=== PATIENT | male | born 1970 | race Caucasian/White ===

== ENCOUNTER 2018-03-12 05:20 | Inpatient (IN) ==
[2018-03-12] MEDS ORDERED: Naloxone 0.4 MG/ML INJ IVP PRN (08:49)
--- NOTE | 2018-03-12 09:08 | Internal Med History&Physical ---
Date of Encounter: 03/12/18 Time of Encounter: 09:36 Internal Medicine - H&P: HPI Chief complaint: Seizures Admitted From: Home Plans for Post Hospital Care: Home History of present illness: Mr. Le is a 47 year old male with of polysubstance abuse, seizure disorder, cirrhosis, HTN Seen and evaluated with girlfriend at the bedside, she has only known him for 5 months and knows he has a hx of seizures He does not take any medications at home according to her Chart review showed hx of subsatnce/alcohol abuse, cirrhosis and HTN. He was in his usual state of health till 3 days ago when he had an episode of tonic seizures. They did not present to the hospital at that time. However, early this mrn around 4a.m, she noticed him clutching his chest and he subsequently had straightening of his RLE, she did not describe a tonic-clonic movement, she believes he was unresponsive and had his RLE straightened out, with foaming in the mouth. She called the squad who transported him to the referring hospital. He had also complained of abdominal pain prior to onset of seizures She denies tongue biting, no bowel or urinary incontinence. No preceding history of trauma The patient's girlfriend denies illicit drug use by him, she reports the last shared a beer yesterday. ON arrival at the referring emergency room, he was given 1 dose of Ativan and his seizures acidosis. Patient remains unresponsive during my evaluation. Workup from the SNF facility shows chem: Within normal limit, transaminitis with AST of 2675, AST of 134, normal bilirubin, coagulation panel within normal limit, CBC within normal limit, urine toxicology was not obtained. Head CT showed no acute abnormality. Patient will be admitted inpatient for encephalopathy, likely due to postictal state from seizures. Past Med Surg Social Fam HX - Past Medical History Medical history: hypertension, seizures, other Additional medical history: arthritis is neck and back Psychiatric history: anxiety, depression - Past Surgical History Surgical History: other Additional surgical history: ear surgery, drain blood from brain in 2001 x2 - Social History Smoking Status: Current every day smoker Smokeless Tobacco Status: No Alcohol use: occasionally Drug use: opiates, IV Drug Use, prescription drug abuse - Family History Mother Living Status: Hx Family Cardiac Disorders: No Hx Family Respiratory Disorders: No Hx Family Cancer: Yes Father Living Status: Hx Family Cardiac Disorders: No Hx Family Respiratory Disorders: No Hx Family Cancer: Yes Internal Medicine - H&P: Meds Divalproex (12 HR) [Depakote (12 HR)] 500 mg PO TID 04/24/17 [History] ALPRAZolam [Xanax 0.5 MG Tablet] 0.5 mg PO BID 07/17/17 [History] Amitriptyline [Elavil] 50 mg PO HS 07/17/17 [History] Buprenorphine HCl/Naloxone HCl [Suboxone 8 mg-2 mg Sl Film] 1 each SL AD 07/17/17 [History] Buspirone HCl [Buspar] 10 mg PO TID 07/17/17 [History] risperiDONE [Risperidone] 1 mg PO HS 07/17/17 [History] Allergy/AdvReac Type Severity Reaction Status Date / Time hydrocodone Allergy Hives Verified 05/22/17 14:15 Penicillins Allergy Hives Verified 05/22/17 14:15 ROS unobtainable: due to mental status All Systems PM: A 10-system review of systems was performed and is negative for pertinent findings except as documented above in the HPI. - Constitutional Vitals: Temp Pulse Resp BP Pulse Ox 98.0 F 98 17 124/79 96 03/12/18 07:30 03/12/18 07:30 03/12/18 07:30 03/12/18 07:30 03/12/18 07:30 Exam: VSS, Stable Gen: Calm, withdraws to noxious stimuli, does not open eyes to name call HEENT: Moist oral mucosa, sclera anicteric, not pale Chest: Equal chest movement bilaterally REsp: CTAB Heart: S1, S2, only, no m/g/r Abdomen: Obese, soft, not tender, BS present in al quadrants Extremities: Joint inspection is WNL, no pedal edema, pulses present bilaterally Neuro: Moves all extremities to noxious stimuli. Unresponsive to name call, pupils are dilated but reactive, sensation is intact Psych: Affect is appropriate Internal Med - H&P Results - Labs CBC & Chem 7: 03/12/18 09:08 - Assessment and plan (1) Altered mental status Current Visit: Yes Status: Acute Assessment and plan: Likely due to postictal state from seizures CT from referral facility is unremarkable Complete blood count, liver function tests, chemistry is unremarkable Ammonia is mildly elevated at 56 Aspiration and fall precautions Keep patient nothing by mouth until fully awake Qualifiers: Altered mental status type: unspecified Qualified Code(s): R41.82 - Altered mental status, unspecified (2) Alcohol use Current Visit: Yes Status: Chronic Assessment and plan: History of same Monitor for withdrawal (3) DVT prophylaxis Current Visit: Yes Status: Acute Assessment and plan: Subcutaneous heparin for DVT prophylaxis (4) Seizure Current Visit: Yes Status: Chronic Assessment and plan: Known hx of seizures with current breakthrough Currently in a post-ictal state Obtain urine tox-received one dose of atiavn from outside hospital Seizure and aspiration precautions Brain MRI scheduled Neuro eval-will await recommendations for antiseizure antiepileptic medications (5) Substance abuse Current Visit: Yes Status: Chronic Assessment and plan: Hx of same, spouse denies, continue to monitor, follow utox, monitor for withdrawal (6) Cirrhosis Current Visit: Yes Status: Chronic Assessment and plan: hx of same per family Ammonia [address] scan orderd, abnormal LFTs, with hx of abdominal pain prior to seizures CBC is WNL Continue to monitor Qualifiers: Hepatic cirrhosis type: alcoholic cirrhosis Ascites presence: without ascites Qualified Code(s): K70.30 - Alcoholic cirrhosis of liver without ascites - Time Spent With Patient Total time spent is greater than 50% in coordination of care (as documented) at patient's floor/unit and/or counseling patient:
[2018-03-12 09:29] LABS: Basophils % 0.5 %; Eosinophils # 0.3 K/mcL (0.0-0.6); Eosinophils % 3.9 %; Hematocrit 37.4 % (37.5-50.1); Hemoglobin 12.9 g/dL (12.9-16.9); Immature Granulocytes % 0.2 % (0-4); Lymphocytes # 2.6 K/mcL (0.6-4.6); Mean Corpuscular HGB Conc 34.5 g/dL (31.6-35.5); Mean Corpuscular Hemoglobin 29.3 pg (28.0-33.3); Mean Platelet Volume 10.5 fL (9.4-12.4); Monocytes # 1.3 K/mcL (0.0-1.3); Monocytes % 14.9 %; Neutrophils # 4.4 K/mcL (1.6-8.9); Platelet Count 155 K/mcL (140-400); Red Cell Distribution Width 12.9 % (11.5-14.5); Segmented Neutrophils % 50.5 %
[2018-03-12 09:36] LABS: Prothrombin Time 11.1 Seconds (9.4-12.1)
[2018-03-12 09:39] LABS: Activated Partial Thrombo Time 33.1 Seconds (26.0-36.0)
[2018-03-12 09:48] LABS: Alanine Aminotransferase 200 Units/L (7-52); Albumin 3.8 g/dL (3.5-5.7); Albumin/Globulin Ratio 1.1 (1.1-2.2); Alkaline Phosphatase 76 Units/L (34-104); Aspartate Amino Transferase 106 Units/L (13-39); BUN/Creatinine Ratio 22 (6-26); Bilirubin,Total 0.8 mg/dL (0.3-1.0); Blood Urea Nitrogen 18 mg/dL (6-20); Carbon Dioxide 26 mEq/L (23-29); Chloride 104 mEq/L (98-107); Chol/HDL Ratio 3.8 (0-4.9); Cholesterol 140 mg/dL (< 200); Globulin 3.5 g/dL (2.4-3.5); Glucose 88 mg/dL (70-105); HDL Cholesterol 37 mg/dL (40-59); LDL Cholesterol,Calculated 87 mg/dL (0-99); Osmolality,Calculated 285 (280-300); Phosphorous 4.9 mg/dL (2.7-4.5); Potassium 3.5 mEq/L (3.5-5.1); Sodium 137 mEq/L (136-145); Total Protein 7.3 g/dL (6.4-8.9); Triglycerides 78 mg/dL (< 150); eGFR For Non-African Americans > 60 (> 60)
[2018-03-12] MEDS ORDERED: *HR* LORazepam 2 MG/ML VIAL IVP PRN (09:50)
[2018-03-12 12:19] VITALS: BP 127/93
--- NOTE | 2018-03-12 13:51 | Event Note ---
Date of Encounter: 03/12/18 Time of Encounter: 13:49 Attention drawn to patient threatening to leave AMA. Patient is pacing in his room, shirtless and awake, alert, oriented X3, son is at the bedside agreeing that "they need to go" Patient can make his decisions and understands the risks.
[2018-03-12] MEDS ORDERED: *HR* Heparin 5,000 UNIT/ML VIAL SQ SCH (16:00)
== END 2018-03-12 14:05 | disposition left against medical advice (07) | DRG 101 ==
LOC: 3BNU
PROVIDERS: ADMIT Pediatrics; ATTEND Pediatrics

== ENCOUNTER 2018-12-30 10:03 | Observation (INO) ==
--- NOTE | 2018-12-30 10:10 | Emergency Department Note ---
Disposition Clinical Impression: Altered mental status Qualifiers: Altered mental status type: unspecified Qualified Code(s): R41.82 - Altered mental status, unspecified Disposition: Admitted As Inpatient Referrals: NONE,PCP [Primary Care Provider] - Time of Disposition: 13:15 General Adult HPI - General Stated complaint: sugar Time Seen by Provider: 12/30/18 10:09 Nursing Notes Reviewed: Yes Vital Signs Reviewed: Yes - History of Present Illness HPI Narrative: 40-year-old male presents emergency department after being found down in her bathroom. Patient states that he does not know what happened. Patient states that he has not use any drugs. He reports having history of seizures and type 1 diabetes mellitus and has not been taking his medications for last several months. Glucose was in the 50s per EMS initially. He was very groggy at first according to them. He was given a work oral glucose and became more responsive per their report. Patient reports having traumatic brain injury in the past. - Related Data Home Medications Medication Instructions Recorded Confirmed Divalproex (12 HR) [Depakote (12 500 mg PO TID 04/24/17 07/15/17 HR)] ALPRAZolam [Xanax 0.5 MG Tablet] 0.5 mg PO BID 07/17/17 07/17/17 Amitriptyline [Elavil] 50 mg PO HS 07/17/17 07/17/17 Buprenorphine HCl/Naloxone HCl 1 each SL AD 07/17/17 07/17/17 [Suboxone 8 mg-2 mg Sl Film] Buspirone HCl [Buspar] 10 mg PO TID 07/17/17 07/17/17 risperiDONE [Risperidone] 1 mg PO HS 07/17/17 07/17/17 Previous Rx's Medication Instructions Recorded Sulfamethoxazole/Trimeth DS 1 each PO BID #20 tablet 09/12/18 [Bactrim DS] cephALEXin [Keflex] 500 mg PO QID #28 capsule 09/12/18 Allergies Allergy/AdvReac Type Severity Reaction Status Date / Time hydrocodone Allergy Hives Verified 05/22/17 14:15 Penicillins Allergy Hives Verified 05/22/17 14:15 All systems ED: reviewed and negative except as stated. Review of Systems: As Per HPI Constitutional: Denies: fever Cardiovascular: Denies: chest pain Respiratory: Denies: cough, dyspnea Gastrointestinal: Denies: abdominal pain, nausea, vomiting Genitourinary: Denies: dysuria Neurological: Denies: headache Past Medical History - Past Medical History Attestation: Yes The following information was validated with the patient. Medical history: Reports: hypertension, seizures, other Surgical history: Reports: other Psychiatric history: Reports: anxiety, depression - Social History Smoking Status: Current every day smoker Smokeless Tobacco Status: No Alcohol use: Reports: occasionally Drug use: Reports: opiates, IV Drug Use, prescription drug abuse Physical Exam - General Limitations: no limitations General appearance: alert, in no apparent distress - Head Head exam: normocephalic - Eye Eye exam: Present: EOMI - ENT ENT exam: mucous membranes moist - Neck Neck exam: Present: trachea midline - Chest Chest inspection: Present: symmetric chest wall rise - Respiratory Respiratory exam: Present: normal lung sounds bilaterally. Absent: respiratory distress, accessory muscle use - Cardiovascular Cardiovascular exam: Present: normal rhythm, tachycardia - Abdominal Exam Abdominal exam: Present: soft, Non-Tender. Absent: tenderness, distention, guarding, rebound, rigidity, diminished bowel sounds - Extremities Exam Extremities exam: Present: normal capillary refill - Back Exam Back exam: Present: full ROM - Neurological Exam Neurological exam: Present: alert, oriented X3, CN II-XII intact - Psychiatric Psychiatric exam: Present: normal affect, normal mood - Skin Skin exam: Present: warm, dry, intact, normal color. Absent: rash Course Vital Signs Temperature 99.6 F 12/30/18 10:18 Pulse Rate 108 12/30/18 10:18 Respiratory Rate 14 12/30/18 10:18 Blood Pressure 136/86 12/30/18 10:18 O2 Sat by Pulse Oximetry 94 12/30/18 10:18 Temperature 99.6 F 12/30/18 10:18 Pulse Rate 85 12/30/18 13:00 Respiratory Rate 12 12/30/18 13:00 Blood Pressure 111/67 12/30/18 13:00 O2 Sat by Pulse Oximetry 96 12/30/18 13:00 Oxygen Delivery Oxygen Delivery Nasal Cannula Medical Decision Making - [facility] Narrative Medical decision making narrative: 48-year-old male presents to the emergency department concern for being found unresponsive in the bathroom and was mildly hypoglycemic at that time. Patient's initial glucose here was 75. We did administer D50. We gave a liter of fluids. Cranial kinase mildly elevated. CT scans of head and neck were obtained. CT scans were negative. Patient does have urine positive for opiates, morphine, amphetamines. Patient was given Narcan here in the emergency department as his consciousness became a little more somnolent. Patient still rousable and protecting his airway at all times. Narcan did not help. Due to concern that patient is not at his baseline mental status with possible medical conditions that he is not currently treating such as known seizure disorder, we have admitted him. Patient somnolent, but responsive, protecting his airway, hemodynamically stable at time of admission. Chest X-Ray 12/30/18 10:10 IMPRESSION: No acute cardiopulmonary disease. D/ / Brody Joseph MD / Brody Joseph MD Interpreting Provider: Brody Joseph MD Head CT 12/30/18 10:11 IMPRESSION: 1. No acute intracranial abnormality. D/ / Angel Valdez MD / Angel Valdez MD Interpreting Provider: Angel Valdez MD Cervical Spine CT 12/30/18 10:19 IMPRESSION: No acute abnormality of the cervical spine. D/ / Angel Lott MD / Angel Lott MD Interpreting Provider: Angel Lott MD - Lab Data Result diagrams: 12/30/18 10:58 12/30/18 10:58 Lab Results 12/30/18 12/30/18 12/30/18 Range/Units 10:58 10:58 10:58 WBC 14.7 H (4.3-11.1) K/mcL RBC 4.49 (4.19-5.50) M/mcL Hgb 13.1 (12.9-16.9) g/dL Hct 39.0 (37.5-50.1) % MCV 86.9 (83.0-100.0) fL MCH 29.2 (28.0-33.3) pg MCHC 33.6 (31.6-35.5) g/dL RDW 13.1 (11.5-14.5) % Plt Count 208 (140-400) K/mcL MPV 11.2 (9.4-12.4) fL Immature Gran % 0.3 (0-4) % Seg Neutrophils % 91.5 % Lymphocytes % 5.9 % Monocytes % 1.5 % Eosinophils % 0.5 % Basophils % 0.3 % Neutrophils # 13.4 H (1.6-8.9) K/mcL Lymphocytes # 0.9 (0.6-4.6) K/mcL Monocytes # 0.2 (0.0-1.3) K/mcL Eosinophils # 0.1 (0.0-0.6) K/mcL Basophils # 0.1 (0.0-0.2) K/mcL Sodium 137 (136-145) mEq/L Potassium 3.8 (3.5-5.1) mEq/L Chloride 106 (98-107) mEq/L Carbon Dioxide 25 (23-29) mEq/L BUN 15 (6-20) mg/dL Creatinine 0.77 (0.70-1.30) mg/dL Est GFR ( Amer) > 60 (> 60) Est GFR (Non-Af Amer) > 60 (> 60) BUN/Creatinine Ratio 19 (6-26) Glucose 79 (70-105) mg/dL Calculated Osmolality 284 (280-300) Calcium 9.4 (8.6-10.3) mg/dL Total Bilirubin 0.9 (0.3-1.0) mg/dL Direct Bilirubin 0.2 (0.0-0.2) mg/dL Indirect Bilirubin 0.7 (0.0-1.2) mg/dL AST 43 H (13-39) Units/L ALT 28 (7-52) Units/L Alkaline Phosphatase 84 (34-104) Units/L Ammonia 38 (16-53) mcmol/L Creatine Kinase 731 H (30-223) Units/L Troponin I < 0.03 (< 0.04) ng/mL Serum Total Protein 7.0 (6.4-8.9) g/dL Albumin 4.1 (3.5-5.7) g/dL Globulin 2.9 (2.4-3.5) g/dL Albumin/Globulin Ratio 1.4 (1.1-2.2) TSH 1.035 (0.340-5.600) mcIU/mL Urine Color (Yellow) Urine Clarity (Clear) Urine pH (5.0-8.0) pH Units Ur Specific [place] (1.010-1.025) Urine Protein (Neg-Trace) mg/dL Urine Glucose (UA) (Normal) mg/dL Urine Ketones (Negative) mg/dL Urine Blood (Negative) Urine Nitrite (Negative) Urine Bilirubin (Negative) Urine Urobilinogen (Normal) mg/dL Ur Leukocyte Esterase (Negative) Ur Culture Indicated? (NO) Urine Opiates Screen (Trqcpr=322) ng/mL Ur Buprenorphine Scrn (Cutoff=5) ng/mL Ur Barbiturates Screen (Qmxtvj=383) ng/mL Ur Phencyclidine Scrn (Cutoff=25) ng/mL Ur Amphetamines Screen (Ldlbou=1815) ng/mL U Benzodiazepines Scrn (Vftcfn=512) ng/mL Urine Cocaine Screen (Cutoff= 300) ng/mL U Marijuana (THC) Screen (Cutoff = 50) ng/mL Ur Drug Screen Interp Ethyl Alcohol < 10 (Less than 10) mg/dL 12/30/18 12/30/18 Range/Units 11:55 11:55 WBC (4.3-11.1) K/mcL RBC (4.19-5.50) M/mcL Hgb (12.9-16.9) g/dL Hct (37.5-50.1) % MCV (83.0-100.0) fL MCH (28.0-33.3) pg MCHC (31.6-35.5) g/dL RDW (11.5-14.5) % Plt Count (140-400) K/mcL MPV (9.4-12.4) fL Immature Gran % (0-4) % Seg Neutrophils % % Lymphocytes % % Monocytes % % Eosinophils % % Basophils % % Neutrophils # (1.6-8.9) K/mcL Lymphocytes # (0.6-4.6) K/mcL Monocytes # (0.0-1.3) K/mcL Eosinophils # (0.0-0.6) K/mcL Basophils # (0.0-0.2) K/mcL Sodium (136-145) mEq/L Potassium (3.5-5.1) mEq/L Chloride (98-107) mEq/L Carbon Dioxide (23-29) mEq/L BUN (6-20) mg/dL Creatinine (0.70-1.30) mg/dL Est GFR ( Amer) (> 60) Est GFR (Non-Af Amer) (> 60) BUN/Creatinine Ratio (6-26) Glucose (70-105) mg/dL Calculated Osmolality (280-300) Calcium (8.6-10.3) mg/dL Total Bilirubin (0.3-1.0) mg/dL Direct Bilirubin (0.0-0.2) mg/dL Indirect Bilirubin (0.0-1.2) mg/dL AST (13-39) Units/L ALT (7-52) Units/L Alkaline Phosphatase (34-104) Units/L Ammonia (16-53) mcmol/L Creatine Kinase (30-223) Units/L Troponin I (< 0.04) ng/mL Serum Total Protein (6.4-8.9) g/dL Albumin (3.5-5.7) g/dL Globulin (2.4-3.5) g/dL Albumin/Globulin Ratio (1.1-2.2) TSH (0.340-5.600) mcIU/mL Urine Color Yellow (Yellow) Urine Clarity Clear (Clear) Urine pH 5.0 (5.0-8.0) pH Units Ur Specific [place] 1.023 (1.010-1.025) Urine Protein Negative (Neg-Trace) mg/dL Urine Glucose (UA) Normal (Normal) mg/dL Urine Ketones Trace H (Negative) mg/dL Urine Blood Negative (Negative) Urine Nitrite Negative (Negative) Urine Bilirubin Negative (Negative) Urine Urobilinogen Normal (Normal) mg/dL Ur Leukocyte Esterase Negative (Negative) Ur Culture Indicated? NO (NO) Urine Opiates Screen Positive H (Chsqnz=099) ng/mL Ur Buprenorphine Scrn Positive H (Cutoff=5) ng/mL Ur Barbiturates Screen Negative (Xxfjdr=655) ng/mL Ur Phencyclidine Scrn Negative (Cutoff=25) ng/mL Ur Amphetamines Screen Positive H (Yujgnb=9163) ng/mL U Benzodiazepines Scrn Negative (Izkzod=387) ng/mL Urine Cocaine Screen Negative (Cutoff= 300) ng/mL U Marijuana (THC) Screen Negative (Cutoff = 50) ng/mL Ur Drug Screen Interp See Below Ethyl Alcohol (Less than 10) mg/dL - EKG Data EKG #1 EKG attestation: Yes I reviewed and interpreted this EKG. EKG results narrative: 2:70 Heart rate 107 bpm, AR interval 136 months seconds, QRS duration 85 ms, QT 232 ms, normal axis. Sinus tachycardia with no ischemic ST changes. Attestation Statement - Attestation Attestation: Patient was seen with resident physician. I reviewed the history, physical, assessment and plan, and agree with the findings. I also personally evaluated this patient and had [id number] time with this patient. 48-year-old male presents to the emergency Department chief complaint of loss of consciousness. Patient was found down in a gas station bathroom. He was unconscious. EMS was notified. When they got there he had regained consciousness. He is brought to the ED for evaluation and treatment. Appears somewhat somnolent. Denies drug use. Patient has seizure disorder. He has a history of drug abuse in the past. He says he is not currently using. He denies fevers or chills no neck pain no back pain other complaints. Review of systems as above and are negative. Physical exam vital signs were stable. ENT is unremarkable with no signs of traumatic injury. Neck and back are nontender. Heart regular rate lungs clear. Abdomen is soft and nontender. Extremities do not show signs of traumatic injury. Neurologically patient appears somewhat somnolent but he is easily arousable and has no focal deficits. Skin no rashes. Psych normal. ED course. I we will do syncopal workup and likely admit the patient for syncope. I will also get a CT the head and neck just to ensure there is no damage from the fall. We will check a drug screen. The patient does appear as though he is an intoxicated with something. We will check labs as well. CTs did not reveal any abnormalities. Labs are largely unremarkable. He had a mildly elevated white blood cell count. Also has toxicology screen was positive for multiple substances. Patient did apparently have a syncopal episode though he was given Narcan here without significant improvement. We observed him for several hours with him still being somewhat somnolent in the history of syncope we opted to admit the patient. We contacted the hospitalist service agreed to accept the patient. Hemodynamically he was stable through stay. Agree with resident physician assessment and plan. ED procedures.I reviewed the patient's EKG as well as the resident physician interpretation and I agree with the findings.
[2018-12-30] MEDS ORDERED: 0.9 % Sodium Chloride 1,000 ML IVC ONE (10:11)
[2018-12-30] MEDS ORDERED: levETIRAcetam 1,000 MG in 0.9 % Sodium Chloride 100 ML IVPB ONE (11:00)
[2018-12-30] MEDS ORDERED: *HR* Dextrose 50 % in Water (Syg) 50 ML SYRINGE IVP ONE (11:05)
[2018-12-30 11:13] LABS: Basophils # 0.1 K/mcL (0.0-0.2); Basophils % 0.3 %; Eosinophils # 0.1 K/mcL (0.0-0.6); Eosinophils % 0.5 %; Hemoglobin 13.1 g/dL (12.9-16.9); Immature Granulocytes % 0.3 % (0-4); Lymphocytes # 0.9 K/mcL (0.6-4.6); Lymphocytes % 5.9 %; Mean Corpuscular HGB Conc 33.6 g/dL (31.6-35.5); Mean Corpuscular Hemoglobin 29.2 pg (28.0-33.3); Mean Corpuscular Volume 86.9 fL (83.0-100.0); Mean Platelet Volume 11.2 fL (9.4-12.4); Monocytes # 0.2 K/mcL (0.0-1.3); Monocytes % 1.5 %; Neutrophils # 13.4 K/mcL (1.6-8.9); Platelet Count 208 K/mcL (140-400); Red Blood Count 4.49 M/mcL (4.19-5.50); Red Cell Distribution Width 13.1 % (11.5-14.5); Segmented Neutrophils % 91.5 %; White Blood Count 14.7 K/mcL (4.3-11.1)
[2018-12-30] MEDS ORDERED: *HR* Dextrose 50 % in Water (Syg) 50 ML SYRINGE ONE (11:27)
[2018-12-30 11:34] LABS: Alanine Aminotransferase 28 Units/L (7-52); Albumin 4.1 g/dL (3.5-5.7); Albumin/Globulin Ratio 1.4 (1.1-2.2); Alkaline Phosphatase 84 Units/L (34-104); Aspartate Amino Transferase 43 Units/L (13-39); BUN/Creatinine Ratio 19 (6-26); Bilirubin,Direct 0.2 mg/dL (0.0-0.2); Bilirubin,Indirect 0.7 mg/dL (0.0-1.2); Bilirubin,Total 0.9 mg/dL (0.3-1.0); Blood Urea Nitrogen 15 mg/dL (6-20); Calcium 9.4 mg/dL (8.6-10.3); Carbon Dioxide 25 mEq/L (23-29); Chloride 106 mEq/L (98-107); Creatine Kinase 731 Units/L (30-223); Ethanol < 10 mg/dL (Less than 10); Globulin 2.9 g/dL (2.4-3.5); Glucose 79 mg/dL (70-105); Osmolality,Calculated 284 (280-300); Potassium 3.8 mEq/L (3.5-5.1); Sodium 137 mEq/L (136-145); Troponin I < 0.03 ng/mL (< 0.04); eGFR For African Americans > 60 (> 60); eGFR For Non-African Americans > 60 (> 60)
[2018-12-30 11:47] LABS: Thyroid Stimulating Hormone 1.035 mcIU/mL (0.340-5.600)
[2018-12-30] MEDS ORDERED: Naloxone 0.4 MG/ML INJ IVP ONE (12:12)
[2018-12-30 12:13] LABS: Bilirubin,Urine Negative (Negative); Blood,Urine Negative (Negative); Clarity,Urine Clear (Clear); Color,Urine Yellow (Yellow); Glucose,Urine (UA) Normal (Normal); Ketones,Urine Trace mg/dL (Negative); Leukocyte Esterase,Urine Negative (Negative); Nitrite,Urine Negative (Negative); Protein,Urine Negative (Neg-Trace); Specific Gravity,Urine 1.023 (1.010-1.025); Urobilinogen,Urine Normal (Normal)
[2018-12-30 12:24] LABS: Amphetamine Screen,Urine Positive ng/mL (Cutoff=1000); Barbiturate Screen,Urine Negative ng/mL (Cutoff=200); Benzodiazepines Screen,Urine Negative ng/mL (Cutoff=200); Cannabinoid Screen,Urine Negative ng/mL (Cutoff = 50); Cocaine Screen,Urine Negative ng/mL (Cutoff= 300); Opiate Screen,Urine Positive ng/mL (Cutoff=300); Phencyclidine Screen,Urine Negative ng/mL (Cutoff=25)
[2018-12-30] MEDS ORDERED: Naloxone 0.4 MG/ML INJ IVP PRN (14:38)
[2018-12-30] MEDS ORDERED: cloNIDine HCl 0.1 MG TABLET PO PRN (14:41)
--- NOTE | 2018-12-30 14:52 | Internal Med History&Physical ---
Date of Encounter: 12/30/18 Time of Encounter: 14:10 Internal Medicine - H&P: HPI Chief complaint: Unresponsiveness Admitted From: Emergency Dept Plans for Post Hospital Care: Home History of present illness: Mr. Le is a 48 year old male with above medical history is significant for opioid abuse, seizure disorder, noncompliance, was brought to the hospital after he was found unresponsive and unconscious in his bathroom. There are also concerns about hypoglycemia. Patient is still drowsy and somnolent but easily arousable, is only able to provide limited histroy. History was basically obtained from the charts. Patient was found unresponsive in the bathroom. He did not remember what happened. He had a history of seizure disorder but is not taking any medications. When the EMS arrived, patient had already regained consciousness. Patient denied any drug use. Patient denied any fever, chills, rigors. In the emergency department, patient was hemodynamically stable. His blood glucose level was 75. CT scan of the head was negative. CT scan of the cervical spine was negative for any traumatic fracture. Laboratory workup showed leukocytosis with WBC count of 14.7, creatine kinase of 731, urine screen positive for opiates, buprenorphine, amphetamines. Patient was admitted for further management of syncopal workup. Past Med Surg Social Fam HX - Past Medical History Medical history: hypertension, seizures, other Additional medical history: MRSA Psychiatric history: anxiety, depression - Past Surgical History Surgical History: other Additional surgical history: ear surgery, drain blood from brain in 2001 x2 - Social History Smoking Status: Current every day smoker Smokeless Tobacco Status: No Alcohol use: occasionally Drug use: opiates, IV Drug Use, prescription drug abuse - Family History Mother Living Status: Hx Family Cardiac Disorders: No Hx Family Respiratory Disorders: No Hx Family Cancer: Yes Father Living Status: Hx Family Cardiac Disorders: No Hx Family Respiratory Disorders: No Hx Family Cancer: Yes Internal Medicine - H&P: Meds Buprenorphine HCl/Naloxone HCl [Buprenorphin-Naloxon 8-2 mg Sl] 2 each SL DAILY 12/30/18 [History] Melatonin 5 mg PO HS PRN 12/30/18 [History] hydrOXYzine HCl [Hydroxyzine HCl] 50 mg PO BID PRN 12/30/18 [History] Allergy/AdvReac Type Severity Reaction Status Date / Time hydrocodone Allergy Hives Verified 05/22/17 14:15 Penicillins Allergy Hives Verified 05/22/17 14:15 All Systems PM: A 10-system review of systems was performed and is negative for pertinent findings except as documented above in the HPI. Review of systems: General: Negative for fever, chills, rigors. HEENT: Negative for neck swelling, discharge from nose, discharge from ears. EYES: Negative for any discharge from the eyes. Respiratory: Negative for shortness of breath, orthopnea, exertional dyspnea. Cardiovascular: Negative for chest pain, shortness of breath, orthopnea, PND. Gastrintestical: Negative for diarrhea, constipation, blood in stools. Genitourinary: Negative for dysuria, hematuria, nocturia, increased frequency of urine. Hematological: Negative for blood loss, negative for active cancer. Neurological: See HPI Endocrinology: Negative for constipation, polyuria, polydipsia. Integumentary: Negative for rash, wounds, ulcers. Psychiatric: Negative for anxiety or depression. - Constitutional Vitals: Temp Pulse Resp BP Pulse Ox 99.6 F 80 12 109/68 97 12/30/18 10:18 12/30/18 14:00 12/30/18 14:00 12/30/18 14:00 12/30/18 14:00 Exam: General: Drowst and somewhat somnolent, no physical distress, able to follow commands. HEENT: No thyromegaly, no lymphadenopathy, no discharge. Eyes: No discharge. Normal conjuctiva, no icterus Respiratory: Normal vesicular breathing, no added sounds, breathing equal in both sides. CVS: Normal heart sounds, no murmurs, regular rhthm, no edema Extremities: No peripheral edema, peripheral pulses intact. Lymph nodes: No lymphadenopathy Gastrointestinal: Soft, nontender abdomen, normal abdominal sounds. No distention noted. Genitourinary: No paravertebral tenderness. Skin: Multiple bunn on the arms, concerning for the IV drug injections. Neurological: Droswy somnolent, easily arousable, able to follow commadns.. Internal Med - H&P Results - Labs CBC & Chem 7: 12/30/18 10:58 12/30/18 10:58 Labs: Short CBC 12/30/18 Range/Units 10:58 WBC 14.7 H (4.3-11.1) K/mcL Hgb 13.1 (12.9-16.9) g/dL Hct 39.0 (37.5-50.1) % Plt Count 208 (140-400) K/mcL Neutrophils # 13.4 H (1.6-8.9) K/mcL BMP 12/30/18 10:58 Sodium 137 Potassium 3.8 Chloride 106 Carbon Dioxide 25 BUN 15 Creatinine 0.77 Glucose 79 Calcium 9.4 Cardiac Enzymes 12/30/18 Range/Units 10:58 Troponin I < 0.03 (< 0.04) ng/mL Liver Function 12/30/18 Range/Units 10:58 Total Bilirubin 0.9 (0.3-1.0) mg/dL Direct Bilirubin 0.2 (0.0-0.2) mg/dL AST 43 H (13-39) Units/L ALT 28 (7-52) Units/L Alkaline Phosphatase 84 (34-104) Units/L Albumin 4.1 (3.5-5.7) g/dL Urine 12/30/18 Range/Units 11:55 Urine Color Yellow (Yellow) Urine Clarity Clear (Clear) Urine pH 5.0 (5.0-8.0) pH Units Ur Specific [place] 1.023 (1.010-1.025) Urine Protein Negative (Neg-Trace) mg/dL Urine Glucose (UA) Normal (Normal) mg/dL - Impressions ITS Impressions Chest X-Ray 12/30/18 10:10 IMPRESSION: No acute cardiopulmonary disease. D/ / Brody Joseph MD / Brody Joseph MD Interpreting Provider: Brody Joseph MD Head CT 12/30/18 10:11 IMPRESSION: 1. No acute intracranial abnormality. D/ / Angel Valdez MD / Angel Valdez MD Interpreting Provider: Angel Valdez MD Cervical Spine CT 12/30/18 10:19 IMPRESSION: No acute abnormality of the cervical spine. D/ / Angel Lott MD / Angel Lott MD Interpreting Provider: Angel Lott MD - Assessment and Plan (1) Altered mental status Current Visit: Yes Status: Acute Assessment and plan: Etiology most likely secondary to opioid use as the UDS is positive for opiates. Seizure cannot be ruled out considering elevated creatine kinases and leukocytosis. Patient was given IV Keppra in the emergency department. CT scan of the head negative for any intracranial phenomenon. Patient is currently somnolent but is responsive and is protecting his airway, hemodynamically stable, no need for intubation He denied drug use but as mentioned, UDS is positive. Considering there are the concerns regarding hypoglycemia, every 4 hours glucose checks. We will start the patient back on his antiseizure medication once confirmed with the pharmacy. Obtain echo cardiography to rule out any cardiac etiology leading to syncope. Qualifiers: Altered mental status type: unspecified Qualified Code(s): R41.82 - Altered mental status, unspecified (2) Seizure Current Visit: No Status: Chronic Assessment and plan: History of seizure disorder. Not taking dictations. Was given 1g of IV keppra in the ED Start the patient on medications once confirmed with the pharmacy. (3) Substance abuse Current Visit: No Status: Chronic Assessment and plan: History of the stress abuse. Patient denies. UDS positive for amphetamines, opiates, the patient is not feeling. Opioid withdrawal protocol. Avoid narcotics in the hospital. (4) DVT prophylaxis Current Visit: No Status: Acute Assessment and plan: subq heparin (5) Elevated creatine kinase Current Visit: Yes Status: Acute Assessment and plan: Creatine kinase 731 COntinue the IV fludis. Recheck levels in morning (6) Elevated WBC count Current Visit: Yes Status: Acute Assessment and plan: Etiology unclear. Chest x-ray negative. UA negative. Likely seems to be reactive in nature. History of opioid use place the patient high risk for infective endocarditis. Blood culture obtained in the emergency department. We will follow up on them. Considering patient is afebrile, no murmurs on examination, has been otherwise healthy, hold off on starting any antibiotics. Qualifiers: Leukocytosis type: leukemoid reaction Qualified Code(s): D72.823 - Leukemoid reaction - Summary of Assessment and Plan Summary of Assessment and Plan: Currently no diet order. WIll reassess once more somnolent and start on diet - Time Spent With Patient Total time spent is greater than 50% in coordination of care (as documented) at patient's floor/unit and/or counseling patient:
[2018-12-30] MEDS: 0.9 % Sodium Chloride 1,000 ML IVC SCH (15:15)
[2018-12-30] MEDS ORDERED: Melatonin 3 MG TABLET PO PRN (15:48)
[2018-12-30] MEDS: *HR* Heparin 5,000 UNIT/ML VIAL SQ SCH (18:07)
[2018-12-30] MEDS: Valproic Acid 250 MG CAPSULE PO SCH (18:07)
[2018-12-31] MEDS: 0.9 % Sodium Chloride 1,000 ML IVC SCH (01:35)
[2018-12-31 02:09] LABS: Basophils # 0.1 K/mcL (0.0-0.2); Basophils % 0.6 %; Eosinophils # 0.3 K/mcL (0.0-0.6); Eosinophils % 3.9 %; Hematocrit 38.5 % (37.5-50.1); Hemoglobin 12.9 g/dL (12.9-16.9); Immature Granulocytes % 0.1 % (0-4); Lymphocytes # 3.6 K/mcL (0.6-4.6); Lymphocytes % 41.9 %; Mean Corpuscular HGB Conc 33.5 g/dL (31.6-35.5); Mean Corpuscular Hemoglobin 29.1 pg (28.0-33.3); Mean Corpuscular Volume 86.9 fL (83.0-100.0); Mean Platelet Volume 11.2 fL (9.4-12.4); Monocytes % 11.6 %; Neutrophils # 3.6 K/mcL (1.6-8.9); Platelet Count 215 K/mcL (140-400); Red Blood Count 4.43 M/mcL (4.19-5.50); Red Cell Distribution Width 13.5 % (11.5-14.5); Segmented Neutrophils % 41.9 %; White Blood Count 8.6 K/mcL (4.3-11.1)
[2018-12-31 02:28] LABS: BUN/Creatinine Ratio 21 (6-26); Blood Urea Nitrogen 15 mg/dL (6-20); Calcium 8.7 mg/dL (8.6-10.3); Carbon Dioxide 24 mEq/L (23-29); Chloride 106 mEq/L (98-107); Creatine Kinase 337 Units/L (30-223); Glucose 48 mg/dL (70-105); Magnesium 2.2 mg/dL (1.6-2.6); Osmolality,Calculated 284 (280-300); Potassium 3.8 mEq/L (3.5-5.1); Sodium 138 mEq/L (136-145); eGFR For African Americans > 60 (> 60); eGFR For Non-African Americans > 60 (> 60)
[2018-12-31] MEDS: *HR* Heparin 5,000 UNIT/ML VIAL SQ SCH (05:45)
[2018-12-31] MEDS: Valproic Acid 250 MG CAPSULE PO SCH (10:23)
[2018-12-31 11:50] VITALS: BP 118/76
--- NOTE | 2018-12-31 13:57 | Discharge Summary ---
Orders not resulted at time of discharge: Pending orders 12/30/18 10:58 Culture,Blood [BC] Stat 12/30/18 17:28 Valproate Total & Free Stat Date of Encounter: 12/31/18 Time of Encounter: 11:00 - Discharge Diagnosis (1) Altered mental status Priority: Secondary Status: Acute Qualifiers: Altered mental status type: unspecified Qualified Code(s): R41.82 - Altered mental status, unspecified (2) Seizure Priority: Secondary Status: Chronic (3) Substance abuse Priority: Primary Status: Chronic (4) DVT prophylaxis Priority: Secondary Status: Acute (5) Elevated creatine kinase Priority: Secondary Status: Acute (6) Elevated WBC count Priority: Secondary Status: Acute Qualifiers: Leukocytosis type: leukemoid reaction Qualified Code(s): D72.823 - Leukemoid reaction Hospital course: Mr. Le is a 48 year old male presnted with the AMS. UDS was positive for the opiates adn amphetamines. There were concerns for the seizure considering the patient mental status. Patient was given IV Keppra in the emergency department. His CK was high, started on IV fluids. His mental status was likely 2/2 opiates. His mental status improved in the morning. Wa also started back on his home antiseizure meds. He eloped around afternoon. Did not even sign AMA papers. Has a hx of opoid abuse wiht non complaince with the meds. - Time Spent with Patient Total time spent providing and/or coordinating discharge services: 25 minutes - Discharge Medications Prescriptions: New Valproic Acid [Depakene] 500 mg PO TIDWM capsule Continued Buprenorphine HCl/Naloxone HCl [Buprenorphin-Naloxon 8-2 mg Sl] 2 each SL DAILY hydrOXYzine HCl [Hydroxyzine HCl] 50 mg PO BID PRN PRN Reason: Anxiety Melatonin 5 mg PO HS PRN PRN Reason: Insomnia Home Medications: Buprenorphine HCl/Naloxone HCl [Buprenorphin-Naloxon 8-2 mg Sl] 2 each SL DAILY 12/30/18 [History] Melatonin 5 mg PO HS PRN 12/30/18 [History] hydrOXYzine HCl [Hydroxyzine HCl] 50 mg PO BID PRN 12/30/18 [History] Valproic Acid [Depakene] 500 mg PO TIDWM capsule 09/08/19 [Rx] Allergies/Adverse Reactions: Allergy/AdvReac Type Severity Reaction Status Date / Time hydrocodone Allergy Hives Verified 05/22/17 14:15 Penicillins Allergy Hives Verified 05/22/17 14:15 Date of admission: 12/30/18 13:56 Primary care physician: PCP NONE Consults: 12/30/18 15:48 Consult to Neurology [CONS] Routine Consulting Provider: [facility] Reason for Consult: Seizures Call Completed: No - Constitutional Vitals: Temp Pulse Resp BP Pulse Ox 97.8 F 73 18 118/76 99 12/31/18 11:48 12/31/18 11:48 12/31/18 11:48 12/31/18 11:48 12/31/18 11:48 Exam: General: Alert and oriented, , no physical distress, able to follow commands. Respiratory: Normal vesicular breathing, no added sounds, breathing equal in both sides. CVS: Normal heart sounds, no murmurs, regular rhthm, no edema Extremities: No peripheral edema, peripheral pulses intact. Lymph nodes: No lymphadenopathy Gastrointestinal: Soft, nontender abdomen, normal abdominal sounds. No distention noted. Genitourinary: No paravertebral tenderness. Skin: Multiple bunn on the arms, concerning for the IV drug injections. - Patient Status Disposition: Left Against Medical Advice - Discharge Instructions Forms: ED Satisfaction Letter
--- NOTE | 2019-01-01 10:13 | Electrocardiograph Report ---
[address] [address] Test Date: 2018-12-30 Pat Name: Rodger Le Department: EXAM2 Room: 3B41 Gender: M [employer]: : 1970 Requested By: Dami Andrews Order Number: [id number] Reading MD: Prasanth Cagle Measurements Intervals [place] Rate: 107 P: 77 [place]: 136 QRS: 49 QRSD: 85 T: 65 QT: 332 QTc: 443 Interpretive Statements Sinus tachycardia Electronically Signed On 01-01-2019 10:12:19 EDT by Prasanth Cagle
[2019-01-03 02:38] LABS: Valproate Free <7 ug/mL (7-23)
[2019-01-03 10:14] LABS: Valproate Total <7 ug/mL (50-125)
== END 2018-12-31 13:58 | disposition left against medical advice (07) ==
LOC: EMEROOARM 10:03 → 3BNU 10:03 → SUATTDRO 13:56 → 3BNU 15:06
PROVIDERS: ADMIT Internal Medicine; ATTEND Internal Medicine

== ENCOUNTER 2019-04-16 19:14 | Observation (INO) ==
[2019-04-16] MEDS ORDERED: 0.9 % Sodium Chloride 1,000 ML IVC ONE (19:43)
[2019-04-16 20:15] LABS: Basophils % 0.3 %; Eosinophils # 0.1 K/mcL (0.0-0.6); Eosinophils % 1.1 %; Hematocrit 42.2 % (37.5-50.1); Hemoglobin 14.5 g/dL (12.9-16.9); Immature Granulocytes % 0.2 % (0-4); Lymphocytes # 1.7 K/mcL (0.6-4.6); Lymphocytes % 13.7 %; Mean Corpuscular HGB Conc 34.4 g/dL (31.6-35.5); Mean Corpuscular Hemoglobin 29.8 pg (28.0-33.3); Mean Corpuscular Volume 86.8 fL (83.0-100.0); Mean Platelet Volume 10.2 fL (9.4-12.4); Monocytes # 1.2 K/mcL (0.0-1.3); Monocytes % 9.4 %; Neutrophils # 9.4 K/mcL (1.6-8.9); Platelet Count 254 K/mcL (140-400); Red Blood Count 4.86 M/mcL (4.19-5.50); Red Cell Distribution Width 13.6 % (11.5-14.5); Segmented Neutrophils % 75.3 %; White Blood Count 12.5 K/mcL (4.3-11.1)
[2019-04-16 20:36] LABS: Troponin I < 0.03 ng/mL (< 0.04)
[2019-04-16 21:20] LABS: Prothrombin Time 11.6 Seconds (9.4-12.1)
[2019-04-16 21:21] LABS: Alanine Aminotransferase 163 Units/L (7-52); Albumin 4.3 g/dL (3.5-5.7); Albumin/Globulin Ratio 1.3 (1.1-2.2); Alkaline Phosphatase 79 Units/L (34-104); Aspartate Amino Transferase 73 Units/L (13-39); BUN/Creatinine Ratio 20 (6-26); Bilirubin,Total 0.7 mg/dL (0.3-1.0); Blood Urea Nitrogen 19 mg/dL (6-20); Carbon Dioxide 25 mEq/L (23-29); Chloride 100 mEq/L (98-107); Globulin 3.4 g/dL (2.4-3.5); Glucose 93 mg/dL (70-105); Osmolality,Calculated 278 (280-300); Potassium 3.9 mEq/L (3.5-5.1); Sodium 133 mEq/L (136-145); Total Protein 7.7 g/dL (6.4-8.9); eGFR For African Americans > 60 (> 60); eGFR For Non-African Americans > 60 (> 60)
[2019-04-16] MEDS ORDERED: Meropenem 1,000 MG in Water for inj. (sterile) 20 ML IVP ONE (22:39)
[2019-04-16 22:49] LABS: Bilirubin,Urine Negative (Negative); Blood,Urine Negative (Negative); Clarity,Urine Clear (Clear); Color,Urine Yellow (Yellow); Glucose,Urine (UA) Normal (Normal); Ketones,Urine Negative (Negative); Leukocyte Esterase,Urine Negative (Negative); Nitrite,Urine Negative (Negative); Protein,Urine Negative (Neg-Trace); Specific Gravity,Urine 1.016 (1.010-1.025); Urobilinogen,Urine Normal (Normal)
[2019-04-16 23:03] LABS: Amphetamine Screen,Urine Positive ng/mL (Cutoff=1000); Barbiturate Screen,Urine Negative ng/mL (Cutoff=200); Benzodiazepines Screen,Urine Positive ng/mL (Cutoff=200); Cannabinoid Screen,Urine Negative ng/mL (Cutoff = 50); Cocaine Screen,Urine Negative ng/mL (Cutoff= 300); Opiate Screen,Urine Negative ng/mL (Cutoff=300); Phencyclidine Screen,Urine Negative ng/mL (Cutoff=25)
[2019-04-16 23:25] LABS: Ethanol < 10 mg/dL (Less than 10); Lipase 17 Units/L (11-82)
[2019-04-17] MEDS ORDERED: Isovue-370 500 ML BOTTLE IVP ONE (00:17)
[2019-04-17] MEDS ORDERED: Naloxone 0.4 MG/ML INJ IVP PRN (00:50)
[2019-04-17] MEDS ORDERED: Melatonin 3 MG TABLET PO PRN (02:36)
[2019-04-17] MEDS ORDERED: 0.9 % Sodium Chloride 1,000 ML IVC ONE (05:47)
[2019-04-17] MEDS: Acetaminophen 325 MG TABLET PO PRN ×2 (06:00→16:44)
[2019-04-17] MEDS ORDERED: Meropenem 500 MG in Water for inj. (sterile) 10 ML IVP SCH (08:00)
[2019-04-17] MEDS ORDERED: Cefepime HCl 1,000 MG in 0.9 % Sodium Chloride Mini Bag 100 ML IVPB SCH (08:05)
[2019-04-17 08:33] LABS: Hematocrit 40.2 % (37.5-50.1); Hemoglobin 13.8 g/dL (12.9-16.9); Mean Corpuscular HGB Conc 34.3 g/dL (31.6-35.5); Mean Corpuscular Volume 87.4 fL (83.0-100.0); Mean Platelet Volume 10.5 fL (9.4-12.4); Platelet Count 228 K/mcL (140-400); Red Cell Distribution Width 13.9 % (11.5-14.5); White Blood Count 12.1 K/mcL (4.3-11.1)
[2019-04-17 08:43] LABS: BUN/Creatinine Ratio 18 (6-26); Blood Urea Nitrogen 14 mg/dL (6-20); Calcium 8.4 mg/dL (8.6-10.3); Carbon Dioxide 23 mEq/L (23-29); Chloride 107 mEq/L (98-107); Glucose 107 mg/dL (70-105); Osmolality,Calculated 283 (280-300); Potassium 3.6 mEq/L (3.5-5.1); Sodium 136 mEq/L (136-145); eGFR For African Americans > 60 (> 60); eGFR For Non-African Americans > 60 (> 60)
[2019-04-17] MEDS ORDERED: NALOXONE HCL SL SCH (09:00)
[2019-04-17] MEDS ORDERED: OLANZapine 10 MG TAB.RAPDIS PO SCH (09:00)
[2019-04-17] MEDS ORDERED: BUPRENORPHINE HCL SL SCH (09:00)
[2019-04-17] MEDS: Cefepime HCl 1,000 MG in Water for inj. (sterile) 10 ML IVP SCH ×2 (09:46→16:43)
[2019-04-17] MEDS ORDERED: Valproic Acid INJ 1,000 MG in 0.9 % Sodium Chloride 100 ML IVPB ONE (11:21)
[2019-04-17 19:10] VITALS: BP 129/78
[2019-04-17] MEDS ORDERED: Divalproex (12 HR) 500 MG TABLET PO SCH (21:00)
[2019-04-17] MEDS ORDERED: Aminoglycoside Consult 1 EACH MC ONE (21:52)
== END 2019-04-17 21:53 | disposition left against medical advice (07) ==
LOC: 3ANU 19:14 → EMEROOARM 19:14 → 3ANU 04-17 01:25
PROVIDERS: ADMIT Internal Medicine; ATTEND Internal Medicine

== ENCOUNTER 2019-04-19 00:50 | Observation (INO) ==
[2019-04-19] MEDS ORDERED: Ibuprofen 600 MG TABLET PO ONE (01:28)
[2019-04-19] MEDS ORDERED: Vancomycin 1,000 MG VIAL IVPB ONE (01:28)
[2019-04-19] MEDS ORDERED: 0.9 % Sodium Chloride 1,000 ML IVC ONE (01:28)
[2019-04-19] MEDS ORDERED: Cefepime HCl 1,000 MG in 0.9 % Sodium Chloride Mini Bag 100 ML IVPB ONE (02:00)
[2019-04-19 02:19] LABS: Basophils % 0.4 %; Eosinophils # 0.5 K/mcL (0.0-0.6); Eosinophils % 5.1 %; Hematocrit 38.3 % (37.5-50.1); Hemoglobin 13.1 g/dL (12.9-16.9); Immature Granulocytes % 0.3 % (0-4); Lymphocytes # 2.2 K/mcL (0.6-4.6); Lymphocytes % 22.4 %; Mean Corpuscular HGB Conc 34.2 g/dL (31.6-35.5); Mean Corpuscular Hemoglobin 29.3 pg (28.0-33.3); Mean Corpuscular Volume 85.7 fL (83.0-100.0); Mean Platelet Volume 10.6 fL (9.4-12.4); Monocytes % 10.6 %; Platelet Count 217 K/mcL (140-400); Red Blood Count 4.47 M/mcL (4.19-5.50); Red Cell Distribution Width 13.3 % (11.5-14.5); Segmented Neutrophils % 61.2 %; White Blood Count 9.8 K/mcL (4.3-11.1)
[2019-04-19 02:36] LABS: BUN/Creatinine Ratio 16 (6-26); Blood Urea Nitrogen 11 mg/dL (6-20); Calcium 8.9 mg/dL (8.6-10.3); Carbon Dioxide 24 mEq/L (23-29); Chloride 105 mEq/L (98-107); Glucose 95 mg/dL (70-105); Osmolality,Calculated 279 (280-300); Potassium 3.4 mEq/L (3.5-5.1); Sodium 135 mEq/L (136-145); eGFR For African Americans > 60 (> 60); eGFR For Non-African Americans > 60 (> 60)
[2019-04-19] MEDS ORDERED: Isovue-370 500 ML BOTTLE IVP ONE (03:08)
[2019-04-19] MEDS ORDERED: Naloxone 0.4 MG/ML INJ IVP PRN (03:39)
[2019-04-19] MEDS ORDERED: Ondansetron 4 MG/2 ML VIAL IVP PRN (03:39)
[2019-04-19] MEDS ORDERED: Potassium Effervescent 25 MEQ TABLET.EFF PO ONE (03:44)
[2019-04-19] MEDS ORDERED: 0.9 % Sodium Chloride 1,000 ML IVC SCH (03:45)
[2019-04-19] MEDS: Cefepime HCl 1,000 MG in 0.9 % Sodium Chloride Mini Bag 100 ML IVPB SCH ×2 (06:12→13:26)
[2019-04-19] MEDS: *HR* Heparin 5,000 UNIT/ML VIAL SQ SCH ×3 (06:13→20:38)
[2019-04-19] MEDS ORDERED: *HR* LORazepam 2 MG/ML VIAL IVP PRN (09:41)
[2019-04-19] MEDS: Divalproex (12 HR) 500 MG TABLET PO SCH ×2 (10:32→20:34)
[2019-04-19] MEDS ORDERED: Cefepime HCl 1,000 MG in 0.9 % Sodium Chloride Mini Bag 100 ML IVPB SCH (14:00)
[2019-04-19] MEDS: Cefepime HCl 2,000 MG in Water for inj. (sterile) 20 ML IVP SCH (20:33)
[2019-04-20 04:50] LABS: Basophils % 0.5 %; Eosinophils # 0.5 K/mcL (0.0-0.6); Eosinophils % 6.1 %; Hematocrit 40.7 % (37.5-50.1); Hemoglobin 13.2 g/dL (12.9-16.9); Immature Granulocytes % 0.2 % (0-4); Lymphocytes # 3.3 K/mcL (0.6-4.6); Lymphocytes % 38.6 %; Mean Corpuscular HGB Conc 32.4 g/dL (31.6-35.5); Mean Corpuscular Hemoglobin 29.4 pg (28.0-33.3); Mean Corpuscular Volume 90.6 fL (83.0-100.0); Mean Platelet Volume 10.7 fL (9.4-12.4); Monocytes # 0.9 K/mcL (0.0-1.3); Monocytes % 10.6 %; Neutrophils # 3.7 K/mcL (1.6-8.9); Platelet Count 250 K/mcL (140-400); Red Blood Count 4.49 M/mcL (4.19-5.50); Red Cell Distribution Width 13.2 % (11.5-14.5); White Blood Count 8.5 K/mcL (4.3-11.1)
[2019-04-20] MEDS: Cefepime HCl 2,000 MG in Water for inj. (sterile) 20 ML IVP SCH ×3 (06:20→22:13)
[2019-04-20] MEDS: *HR* Heparin 5,000 UNIT/ML VIAL SQ SCH ×3 (06:21→22:13)
[2019-04-20 07:42] LABS: Amphetamine Screen,Urine Positive ng/mL (Cutoff=1000)
[2019-04-20 07:43] LABS: Barbiturate Screen,Urine Negative ng/mL (Cutoff=200); Benzodiazepines Screen,Urine Negative ng/mL (Cutoff=300); Cannabinoid Screen,Urine Positive ng/mL (Cutoff = 50); Cocaine Screen,Urine Negative ng/mL (Cutoff= 300); Opiate Screen,Urine Negative ng/mL (Cutoff=300)
[2019-04-20 07:44] LABS: Phencyclidine Screen,Urine Negative ng/mL (Cutoff=25)
[2019-04-20] MEDS: Divalproex (12 HR) 500 MG TABLET PO SCH ×2 (09:52→22:13)
[2019-04-20] MEDS: *HR* Buprenorphine HCl 8 MG TAB.SUBL SL SCH (10:32)
[2019-04-20] MEDS: OLANZapine 5 MG TAB.RAPDIS PO SCH (22:12)
[2019-04-20] MEDS: Acetaminophen 325 MG TABLET PO PRN (22:13)
[2019-04-21] MEDS: *HR* Heparin 5,000 UNIT/ML VIAL SQ SCH ×3 (05:11→21:57)
[2019-04-21] MEDS: Cefepime HCl 2,000 MG in Water for inj. (sterile) 20 ML IVP SCH ×3 (05:12→21:58)
[2019-04-21] MEDS: *HR* Buprenorphine HCl 8 MG TAB.SUBL SL SCH (10:53)
[2019-04-21] MEDS: Divalproex (12 HR) 500 MG TABLET PO SCH ×2 (10:53→21:57)
[2019-04-21] MEDS: OLANZapine 5 MG TAB.RAPDIS PO SCH (21:58)
[2019-04-21] MEDS: Acetaminophen 325 MG TABLET PO PRN (22:07)
[2019-04-22 02:38] LABS: Basophils # 0.1 K/mcL (0.0-0.2); Basophils % 0.7 %; Eosinophils # 0.6 K/mcL (0.0-0.6); Eosinophils % 6.7 %; Hemoglobin 12.9 g/dL (12.9-16.9); Immature Granulocytes % 0.4 % (0-4); Lymphocytes # 3.1 K/mcL (0.6-4.6); Lymphocytes % 37.8 %; Mean Corpuscular HGB Conc 33.1 g/dL (31.6-35.5); Mean Corpuscular Hemoglobin 29.1 pg (28.0-33.3); Mean Platelet Volume 10.6 fL (9.4-12.4); Monocytes # 0.8 K/mcL (0.0-1.3); Monocytes % 9.4 %; Neutrophils # 3.7 K/mcL (1.6-8.9); Platelet Count 266 K/mcL (140-400); Red Blood Count 4.43 M/mcL (4.19-5.50); Red Cell Distribution Width 12.8 % (11.5-14.5); White Blood Count 8.2 K/mcL (4.3-11.1)
[2019-04-22 03:01] LABS: BUN/Creatinine Ratio 29 (6-26); Blood Urea Nitrogen 22 mg/dL (6-20); eGFR For African Americans > 60 (> 60); eGFR For Non-African Americans > 60 (> 60)
[2019-04-22] MEDS: *HR* Heparin 5,000 UNIT/ML VIAL SQ SCH ×2 (05:20→13:24)
[2019-04-22] MEDS: Cefepime HCl 2,000 MG in Water for inj. (sterile) 20 ML IVP SCH ×2 (05:20→13:26)
[2019-04-22 06:54] VITALS: BP 133/74
[2019-04-22] MEDS: *HR* Buprenorphine HCl 8 MG TAB.SUBL SL SCH (08:56)
[2019-04-22] MEDS: Divalproex (12 HR) 500 MG TABLET PO SCH (08:56)
[2019-04-22] MEDS ORDERED: Aminoglycoside Consult 1 EACH MC ONE (16:09)
== END 2019-04-22 16:10 | disposition left against medical advice (07) ==
LOC: 3ANU 00:50 → EMEROOARM 00:50 → SUATTDRO 05:21 → 3ANU 05:58
PROVIDERS: ADMIT Internal Medicine; ATTEND Internal Medicine